=== PATIENT | male | born 1965 | race Two or more races ===

== ENCOUNTER 2024-01-17 16:54 | Emergency (ER) | payer SELFPAY ==
[~2024-01-17] VITALS: Ht 175.3 cm; Wt 107.0 kg
[2024-01-17 20:15] VITALS: PULSE 92; O2SAT 98
[2024-01-17] MEDS: cloNIDine HCL 0.1 MG TAB PO ONE (20:19)
[2024-01-17 21:39] VITALS: BP 174/89; PULSE 83; RESP 16; TEMP 97.7; O2SAT 95
== END 2024-01-17 21:38 | disposition home or self-care (01) ==
LOC: EDBD 16:54 → ER 16:55
DX: I16.0 Hypertensive urgency (principal); Z59.00 Homelessness unspecified
CPT/HCPCS: 71045; 93005